=== PATIENT | male | born 1965 ===

== ENCOUNTER 2016-12-06 15:34 | Emergency (ER) | payer OTHER ==
[2016-12-06 15:43] VITALS: TEMP 96.6
--- NOTE | 2016-12-06 16:28 | ED PDOC ---
HPI: Male Pain Time Seen by Provider: 12/06/16 16:01 Chief Complaint (Nursing): Male Genitourinary Chief Complaint (Provider): Urinary Frequency History Per: Patient History/Exam Limitations: no limitations Onset/Duration Of Symptoms: Days (x2) Current Symptoms Are (Timing): Still Present Severity: Moderate Associated Symptoms: Urinary Symptoms (scant whitish penile d/c). denies: Fever , Other (no abdominal pain) Additional Complaint(s): Brian Cortes is a 51 year old male, with no pertinent past medical history, who presents to the ED on 12/03/16 for the evaluation of moderate urinary frequency that he has experienced x2 days. Associated scant, whitish penile discharge also reported, though he denies fever or abdominal pain. He is monogamously sexually active with 1 sexual partner, who is also monogomous, without contraception. PMD: non CPH Past Medical History Reviewed: Historical Data, Nursing Documentation, Vital Signs Vital Signs: Last Vital Signs Temp 96.6 F L 12/06/16 15:40 Pulse 100 H 12/06/16 15:40 Resp 20 12/06/16 15:40 BP 164/96 H 12/06/16 15:40 Pulse Ox 97 12/06/16 15:40 - Medical History PMH: No Chronic Diseases - Surgical History Other surgeries: right ankle surgery - Family History Family History: States: Unknown Family Hx - Allergies Allergies/Adverse Reactions: Allergies Allergy/AdvReac Type Severity Reaction Status Date / Time No Known Allergies Allergy Verified 12/06/16 15:40 Review of Systems ROS Statement: Except As Marked, All Systems Reviewed And Found Negative Constitutional: Negative for: Fever Gastrointestinal: Negative for: Abdominal Pain Genitourinary Male: Positive for: Frequency, Penile Discharge (scant, white) Physical Exam - Reviewed Nursing Documentation Reviewed: Yes Vital Signs Reviewed: Yes - Physical Exam Appears: Positive for: Non-toxic, No Acute Distress Head Exam: Positive for: ATRAUMATIC, NORMOCEPHALIC Skin: Positive for: Normal Color, Warm, Dry Cardiovascular/Chest: Positive for: Regular Rate, Rhythm. Negative for: Murmur Respiratory: Positive for: Normal Breath Sounds. Negative for: Respiratory Distress Gastrointestinal/Abdominal: Positive for: Normal Exam, Soft. Negative for: Tenderness Male Genital Exam: Positive for: normal genitalia. Negative for: testicular tenderness (R), testicular tenderness (L), urethral discharge, other (no testicular mass, no rash) Back: Positive for: Normal Inspection Neurologic/Psych: Positive for: Alert, Oriented - ECG O2 Sat by Pulse Oximetry: 97 (RA) Pulse Ox Interpretation: Normal Medical Decision Making Medical Decision Makin:01 Initial Impression: urinary frequency, penile discharge Initial Plan: * Udip * Urine Culture * Chlamydia/GC RNA Scribe Attestation: Documented by Caroline Greenfield, acting as a scribe for Andrew Cook MD. Provider Scribe Attestation: All medical record entries made by the Scribe were at my direction and personally dictated by me. I have reviewed the chart and agree that the record accurately reflects my personal performance of the history, physical exam, medical decision making, and the department course for this patient. I have also personally directed, reviewed, and agree with the discharge instructions and disposition. Disposition - Clinical Impression Clinical Impression: Urethritis - Patient ED Disposition Is Patient to be Admitted: No Counseled Patient/Family Regarding: Studies Performed, Diagnosis, Need For Followup - Disposition Referrals: [facility] [Outside] Disposition: Routine/Home Disposition Time: 17:35 Condition: FAIR Instructions: Nonspecific Urethritis in Men (ED)
[2016-12-06] MEDS ORDERED: cefTRIAXone (Rocephin) 250 mg Inj IM ONE (17:33)
[2016-12-06 17:53] VITALS: BP 128/79; PULSE 88; RESP 14; O2SAT 100
== END 2016-12-06 17:59 | disposition home or self-care (01) ==
LOC: H.ER 15:34
DX: N34.2 Other urethritis (principal)